=== PATIENT | male | born 1960 | race African-American/Black ===

== ENCOUNTER 2021-04-08 15:00 | Inpatient (IN) | payer OTHER ==
[2021-04-08 15:42] VITALS: BMI 25.4
[2021-04-08] MEDS ORDERED: IBUPROFEN 400 MG TABLET (FP) PO PRN (20:12)
[2021-04-08] MEDS ORDERED: MENTHOL/PHENOL 1 EACH UD MM PRN (20:12)
[2021-04-08] MEDS ORDERED: MAGNESIUM CITRATE 300 ML BOTTLE PO PRN (20:12)
[2021-04-08] MEDS ORDERED: ONDANSETRON *ODT* 4 MG TABLET SL PRN (20:12)
[2021-04-08] MEDS ORDERED: METHOCARBAMOL 500 MG TABLET PO PRN (20:12)
[2021-04-08] MEDS ORDERED: hydrOXYzine PAMOATE 25 MG CAPSULE (FP) PO PRN (20:12)
[2021-04-08] MEDS ORDERED: ACETAMINOPHEN 325 MG TABLET (FP) PO PRN ×2 (20:12)
[2021-04-08] MEDS ORDERED: MAGNESIUM HYDROX 2400MG/30ML ORAL SUSPENSION 30 ML CUP PO PRN (20:12)
[2021-04-08] MEDS ORDERED: BISMUTH SUBSALICYLATE 524 MG/30 ML PO PRN (20:12)
[2021-04-08] MEDS ORDERED: MAG HYDROX/AL HYDROX/SIMETH 30 ML UNIT-DOSE CUP PO PRN (20:12)
[2021-04-09] MEDS: MELATONIN 5 MG TABLETS PO SCH ×2 (00:21→22:56)
[2021-04-09] MEDS: THIAMINE HCL 100 MG TABLET (FP) PO SCH ×2 (00:21→22:56)
[2021-04-09] MEDS ORDERED: diazePAM 5 MG TABLET PO PRN (09:27)
[2021-04-09] MEDS ORDERED: HYDROCHLOROTHIAZIDE 25 MG TABLET (FP) PO SCH ×2 (10:00→10:04)
[2021-04-09 10:21] LABS: HEMATOCRIT 43.2 % (35.4-49); HEMOGLOBIN 14.8 GM/dL (11.7-16.9); MCH 30.1 pg (25.7-33.7); MCHC 34.3 g/dl (32.0-35.9); MEAN CELL VOLUME 87.9 fl (80-96); MEAN PLT VOLUME 9.1 fl (7.5-11.1); PLATELET COUNT 228 10^3/uL (134-434); RBC 4.91 M/mm3 (4.00-5.60); RDW 14.5 % (11.9-15.9); WHITE BLOOD COUNT 4.7 K/mm3 (4.0-10.0)
[2021-04-09] MEDS: PRENATAL VITAMINS W/ FOLIC ACID TABLET (FP) PO SCH (10:40)
[2021-04-09 11:01] LABS: CALCIUM 8.8 mg/dL (8.5-10.1)
[2021-04-09 11:02] LABS: ALBUMIN 3.3 g/dl (3.4-5.0); BLOOD UREA NITROGEN 14.4 mg/dL (7-18)
[2021-04-09 11:06] LABS: BILIRUBIN,TOTAL 0.8 mg/dL (0.2-1)
[2021-04-09 11:07] LABS: TOT PROT 6.5 g/dl (6.4-8.2)
[2021-04-09] MEDS: diazePAM 5 MG TABLET PO SCH ×3 (13:07→22:56)
[2021-04-10] MEDS: diazePAM 5 MG TABLET PO SCH ×2 (07:46→10:23)
[2021-04-10] MEDS: PRENATAL VITAMINS W/ FOLIC ACID TABLET (FP) PO SCH (10:23)
[2021-04-10] MEDS ORDERED: PENICILLIN G BENZATHINE 2,400,000 UNIT/4 ML PFS IM ONE (11:45)
[2021-04-10 13:19] VITALS: BP 141/93; PULSE 61; TEMP 96.8
[2021-04-11] MEDS ORDERED: diazePAM 5 MG TABLET PO SCH (06:00)
[2021-04-12] MEDS ORDERED: diazePAM 5 MG TABLET PO SCH (06:00)
[2021-04-13] MEDS ORDERED: diazePAM 5 MG TABLET PO ONE (06:00)
== END 2021-04-10 16:18 | disposition left against medical advice (07) | DRG 770 ==
LOC: YASAS 15:00 → Y3N 23:28
PROVIDERS: ADMIT Allergy & Immunology; ATTEND Allergy & Immunology
PROC: HZ2ZZZZ Detoxification Services for Substance Abuse Treatment (ICD-10-PCS; principal; 2021-04-08)
DX: F10.230 Alcohol dependence with withdrawal, uncomplicated (principal); F14.20 Cocaine dependence, uncomplicated; F17.210 Nicotine dependence, cigarettes, uncomplicated; I10 Essential (primary) hypertension; Z87.19 Personal history of other diseases of the digestive system; Z86.19 Personal history of other infectious and parasitic diseases; Z98.890 Other specified postprocedural states
CPT/HCPCS: 36415; 80053; 85027; 86593; 86780; C9803; U0003; U0005